=== PATIENT | male | born 1990 | race Caucasian/White ===

== ENCOUNTER 2018-11-06 16:23 | Emergency (ER) | payer OTHER, SELFPAY ==
[2018-11-06 16:45] VITALS: BP 125/82; PULSE 70; RESP 15; TEMP 36.1; O2SAT 100; BMI 31.9
--- NOTE | 2018-11-06 17:17 | DI.RAD.S_ITS ---
PROCEDURE: XR CHEST 1V INDICATIONS: central chest pain, on/off months. TECHNIQUE: One view of the chest was acquired. COMPARISON: None. FINDINGS: Surgical changes and devices: None. Lungs and pleura: Lungs are clear. No pleural effusions or pneumothorax. Mediastinum: Mediastinal contours appear normal. Heart size is normal. Bones and chest wall: No suspicious bony lesions. Overlying soft tissues appear unremarkable. IMPRESSION: No acute cardiopulmonary disease. Dictated by: Estefani Rosenberg M.D. on 11/06/2018 at 18:05 Approved by: Estefani Rosenberg M.D. on 11/06/2018 at 18:06
--- NOTE | 2018-11-06 17:19 | ED.SOB ---
HPI - SOB/Dyspnea General Chief Complaint: Shortness of Breath/Dyspnea Stated Complaint: SOB x2 days Time Seen by Provider: 11/06/18 17:10 Source: patient and family Mode of arrival: ambulatory Limitations: no limitations History of Present Illness A 28-year-old male who comes to the emergency department with complaint of chest pain and shortness of breath. Patient states he has had chest pain intermittently. He states that occasionally it seems to be associated with exertion, sometimes with eating other times not with anything in particular. He has not been able to establish any kind of pattern. Recently he started having a little bit of shortness of breath in conjunction the last day or 2. Patient states he has not had any fevers no cold cough or congestion. No rashes on his chest. States sort of central lower sternum. He states he does sometimes have abdominal pain because he has IBS knee has diarrhea and constipation intermittently because of IBS. Patient has not had any nausea or vomiting. He has felt short clammy at times with these episodes. He does not have any known medical problems. He has not had any prior surgeries. He was recently flown back from the [employer] travel time and airplane about 2 weeks ago. He has not appreciated any swelling or pain in his lower extremities. Related Data Home Medications Medication Instructions Recorded Confirmed No Known Home Medications 11/06/18 11/06/18 Allergies Allergy/AdvReac Type Severity Reaction Status Date / Time No Known Drug Allergies Allergy Verified 11/06/18 16:45 Review of Systems Review of Systems ROS Unobtainable: All systems reviewed & are unremarkable except as noted in HPI and below Constitutional Denies chills, Denies fever(s), Denies lethargy and Denies weakness Cardiovascular Reports chest pain, Reports chest pain at rest ( Sometimes), Reports chest pain with activity ( sometimes), Reports diaphoresis ( felt clammy), Denies syncope, Denies rapid heart rate, Denies edema, Denies irregular heart rhythm, Denies lightheadedness, Denies palpitations, Reports dyspnea (sometimes with chest pain.), Reports dyspnea on exertion and Denies orthopnea Respiratory Denies change in phlegm color, Denies chest congestion, Denies cough, Denies excessive phlegm production, Denies pain on inspiration, Denies pain with cough, Reports dyspnea (sometimes with chest pain.), Reports dyspnea on exertion, Denies stridor and Denies wheezing Gastrointestinal Gastrointestinal: Denies abdominal pain, Denies change in bowel habits, Denies diarrhea, Denies nausea and Denies vomiting Musculoskeletal Denies back pain Integumentary/Breasts Denies rash Neurologic Denies syncope and Denies weakness Endocrine Denies palpitations Allergic/Immunologic Denies wheezing PFSH Medical History IBS (irritable bowel syndrome) (Acute) Social History Smoking Status: Current every day smoker Social History marital status: Smoking Status: Current every day smoker alcohol intake: current substance use type: does not use Exam Narrative Exam Narrative: GENERAL: Alert and oriented x three, well-nourished, well-appearing male in no acute distress. HEENT: Head normocephalic, atraumatic, EOMI, pupils reactive, face symmetric, moist mucous membranes NECK: Supple, full range of motion CARDIOVASCULAR: Regular rate and rhythm without murmurs, rubs or gallops. RESPIRATORY: Breath sounds equal bilaterally, no wheezes rales or rhonchi. ABDOMEN: Soft, nontender. Normoactive bowel sounds all 4 quadrants. No guarding or rebound, rigidity, no mass : No CVA tenderness EXTREMITIES: Normal range of motion, no clubbing or edema. Neurovascularly intact NEUROLOGICAL: Cranial nerves II through XII grossly intact. Moving all extremities SKIN: Warm, dry, no petechiae, no rashes or lesions. Initial Vital Signs Initial Vital Signs: Vital Signs Temperature 97.0 F L 11/06/18 16:45 Pulse Rate 70 11/06/18 16:45 Respiratory Rate 15 11/06/18 16:45 Blood Pressure 125/82 11/06/18 16:45 Pulse Oximetry 100 11/06/18 16:45 Scores HEART Score Heart Score history: Moderately Suspicious Heart Score EKG: Normal Heart Score Age: < 45 years old Heart Score risk factors: No known risk factors Heart Score troponin: < or = to normal limit Heart Score Total: 1 Course Orders Ordered: ED Orders 11/06/18 17:17 XR chest 1V Stat 11/06/18 17:20 EKG-12 Lead Stat 11/06/18 17:40 B Type Natriuretic Peptide Stat Complete Blood Count AUTO DIFF Stat Comprehensive Metabolic Panel Stat D Dimer Stat Lipase Stat Partial Thromboplastin Time Stat Prothrombin Time INR Stat Troponin & CK Cardiac Panel Stat Sodium Chloride (Normal Saline 0.9%) 1,000 mls @ 1,000 mls/hr IV BOLUS ONE Stop: 11/06/18 18:16 Nitroglycerin (Nitrostat) 0.4 mg SL [id number] PRN PRN Reason: Chest Pain Discontinued Medications Aspirin (Aspirin Chew) 324 mg PO NOW ONE Stop: 11/06/18 17:18 Vital Signs - 8 hr 11/06/18 16:45 11/06/18 18:00 Temperature 97.0 F L Pulse Rate 70 68 Respiratory Rate 15 17 Blood Pressure 125/82 Blood Pressure [Left Arm] 107/78 Pulse Oximetry 100 99 MDM - SOB/Dyspnea Differential Diagnosis Likely community acquired pneumonia, pulmonary embolism and other (CAD/angina) Lab Data Attestation: I reviewed the patient's lab results. Result diagrams: 11/06/18 17:40 11/06/18 17:40 Lab Results 11/06/18 11/06/18 11/06/18 Range/Units 17:40 17:40 17:40 WBC 8.5 (4.5-11.0) X10^3/uL RBC 5.12 (4.5-5.9) X10^6/uL Hgb 15.9 (13.5-17.5) g/dL Hct 46.2 (41-53) % MCV 90.1 (80-100) fL MCH 31.0 (26-34) PG MCHC 34.4 (30-36) % RDW 13.1 (11.6-14.8) % Plt Count 209 (150-400) X10^3/uL Neut % (Auto) 55.2 (50-75) % Lymph % (Auto) 34.0 (25-40) % [place] % (Auto) 7.8 (3-14) % Eos % (Auto) 2.6 (2-4) % Baso % (Auto) 0.4 (0-2) % Neut # (Auto) 4700 (7056-8145) /uL Lymph # (Auto) 2900 (5901-0039) /uL [place] # (Auto) 700 (0-900) /uL Eos # (Auto) 200 (0-450) /uL Baso # (Auto) 0 (0-100) /uL PT 13.9 H (10.1-12.7) SECONDS INR 1.2 (0.9-1.3) APTT 32 (26.4-36.2) SECONDS D-Dimer < 200 (<230) ng/mL Sodium 140 (137-145) mmol/L Potassium 3.9 (3.4-5.1) mmol/L Chloride 104 (98-107) mmol/L Carbon Dioxide 26 (22-32) mmol/L BUN 15 (9-20) mg/dL Creatinine 1.10 (0.66-1.25) mg/dL Estimated GFR > 60.0 (>60) mL/min BUN/Creatinine Ratio 13.6 (6-22) Glucose 90 (70-100) mg/dL Calcium 9.6 (8.4-10.2) mg/dL Total Bilirubin 1.0 (0.2-1.3) mg/dL AST 34 (17-59) IU/L ALT 50 (21-72) IU/L Alkaline Phosphatase 87 (38-126) U/L Total Creatine Kinase 64 (55-170) U/L CK-MB (CK-2) TNP CK-MB (CK-2) Rel Index TNP Total Protein 8.2 (6.3-8.2) g/dL Albumin 4.8 (3.5-5.0) g/dL Globulin 3.4 (1.7-4.1) g/dL Albumin/Globulin Ratio 1.4 (1.0-2.8) Lipase 95 (23-300) U/L Imaging Data Chest x-ray: Radiologist's impression: Yobany Sullivan 28 M [address] [address] XRay Report Signed Patient: NateYobany R#: [id number] : 1990Acct:[id number] Age/Sex: 28 / MDate of Service: 11/06/18 Loc: ED Accession Number: [id number] Procedure: XR chest 1V Ordering Provider: Maria L Varela D.O. PROCEDURE: XR CHEST 1V INDICATIONS: central chest pain, on/off months. TECHNIQUE: One view of the chest was acquired. COMPARISON: None. FINDINGS: Surgical changes and devices: None. Lungs and pleura: Lungs are clear. No pleural effusions or pneumothorax. Mediastinum: Mediastinal contours appear normal. Heart size is normal. Bones and chest wall: No suspicious bony lesions. Overlying soft tissues appear unremarkable. IMPRESSION: No acute cardiopulmonary disease. Dictated by: Estefani Rosenberg M.D. on 11/06/2018 at 18:05 Approved by: Estefani Rosenberg M.D. on 11/06/2018 at 1 ECG Data Attestation: I personally reviewed and interpreted this ECG as follows: Prior ECG tracings: not available for review Interpretation: Sinus rhythm with sinus arrhythmia. Ventricular rate of 76 RI interval of 153 QRS of 94 and QTC of 364. No ST elevation or depression appreciated. MDM Narrative Medical decision making narrative: Patient's lab work does not show any acute changes. D-dimer is negative, patient abnormal department. Discussed with patient and family would recommend at least a repeat troponin and EKG. They are open to doing this at this time. Patient was signed out to Dr. Gustafson while pending repeat lab work. Discharge Plan Departure Clinical Impression: Chest pain Instructions: DI for Atypical Chest Pain Prescriptions: No Action No Known Home Medications RF: 0
--- NOTE | 2018-11-06 17:24 | ED_ITS ---
HPI - SOB/Dyspnea General Chief Complaint: Shortness of Breath/Dyspnea Stated Complaint: SOB x2 days Time Seen by Provider: 11/06/18 17:10 Source: patient and family Mode of arrival: ambulatory Limitations: no limitations History of Present Illness A 28-year-old male who comes to the emergency department with complaint of chest pain and shortness of breath. Patient states he has had chest pain intermittently. He states that occasionally it seems to be associated with exertion, sometimes with eating other times not with anything in particular. He has not been able to establish any kind of pattern. Recently he started having a little bit of shortness of breath in conjunction the last day or 2. Patient states he has not had any fevers no cold cough or congestion. No rashes on his chest. States sort of central lower sternum. He states he does sometimes have abdominal pain because he has IBS knee has diarrhea and constipation intermittently because of IBS. Patient has not had any nausea or vomiting. He has felt short clammy at times with these episodes. He does not have any known medical problems. He has not had any prior surgeries. He was recently flown back from the [employer] travel time and airplane about 2 weeks ago. He has not appreciated any swelling or pain in his lower extremities. Related Data Home Medications Medication Instructions Recorded Confirmed No Known Home Medications 11/06/18 11/06/18 Allergies Allergy/AdvReac Type Severity Reaction Status Date / Time No Known Drug Allergies Allergy Verified 11/06/18 16:45 Review of Systems Review of Systems ROS Unobtainable: All systems reviewed & are unremarkable except as noted in HPI and below Constitutional Denies chills, Denies fever(s), Denies lethargy and Denies weakness Cardiovascular Reports chest pain, Reports chest pain at rest ( Sometimes), Reports chest pain with activity ( sometimes), Reports diaphoresis ( felt clammy), Denies syncope, Denies rapid heart rate, Denies edema, Denies irregular heart rhythm, Denies lightheadedness, Denies palpitations, Reports dyspnea (sometimes with chest pain.), Reports dyspnea on exertion and Denies orthopnea Respiratory Denies change in phlegm color, Denies chest congestion, Denies cough, Denies excessive phlegm production, Denies pain on inspiration, Denies pain with cough, Reports dyspnea (sometimes with chest pain.), Reports dyspnea on exertion, Denies stridor and Denies wheezing Gastrointestinal Gastrointestinal: Denies abdominal pain, Denies change in bowel habits, Denies diarrhea, Denies nausea and Denies vomiting Musculoskeletal Denies back pain Integumentary/Breasts Denies rash Neurologic Denies syncope and Denies weakness Endocrine Denies palpitations Allergic/Immunologic Denies wheezing PFSH Medical History IBS (irritable bowel syndrome) (Acute) Social History Smoking Status: Current every day smoker Social History marital status: Smoking Status: Current every day smoker alcohol intake: current substance use type: does not use Exam Narrative Exam Narrative: GENERAL: Alert and oriented x three, well-nourished, well-appearing male in no acute distress. HEENT: Head normocephalic, atraumatic, EOMI, pupils reactive, face symmetric, moist mucous membranes NECK: Supple, full range of motion CARDIOVASCULAR: Regular rate and rhythm without murmurs, rubs or gallops. RESPIRATORY: Breath sounds equal bilaterally, no wheezes rales or rhonchi. ABDOMEN: Soft, nontender. Normoactive bowel sounds all 4 quadrants. No guarding or rebound, rigidity, no mass : No CVA tenderness EXTREMITIES: Normal range of motion, no clubbing or edema. Neurovascularly intact NEUROLOGICAL: Cranial nerves II through XII grossly intact. Moving all extremities SKIN: Warm, dry, no petechiae, no rashes or lesions. Initial Vital Signs Initial Vital Signs: Vital Signs Temperature 97.0 F L 11/06/18 16:45 Pulse Rate 70 11/06/18 16:45 Respiratory Rate 15 11/06/18 16:45 Blood Pressure 125/82 11/06/18 16:45 Pulse Oximetry 100 11/06/18 16:45 Scores HEART Score Heart Score history: Moderately Suspicious Heart Score EKG: Normal Heart Score Age: < 45 years old Heart Score risk factors: No known risk factors Heart Score troponin: < or = to normal limit Heart Score Total: 1 Course Orders Ordered: ED Orders 11/06/18 17:17 XR chest 1V Stat 11/06/18 17:20 EKG-12 Lead Stat 11/06/18 17:40 B Type Natriuretic Peptide Stat Complete Blood Count AUTO DIFF Stat Comprehensive Metabolic Panel Stat D Dimer Stat Lipase Stat Partial Thromboplastin Time Stat Prothrombin Time INR Stat Troponin & CK Cardiac Panel Stat Sodium Chloride (Normal Saline 0.9%) 1,000 mls @ 1,000 mls/hr IV BOLUS ONE Stop: 11/06/18 18:16 Nitroglycerin (Nitrostat) 0.4 mg SL [id number] PRN PRN Reason: Chest Pain Discontinued Medications Aspirin (Aspirin Chew) 324 mg PO NOW ONE Stop: 11/06/18 17:18 Vital Signs - 8 hr 11/06/18 16:45 11/06/18 18:00 Temperature 97.0 F L Pulse Rate 70 68 Respiratory Rate 15 17 Blood Pressure 125/82 Blood Pressure [Left Arm] 107/78 Pulse Oximetry 100 99 MDM - SOB/Dyspnea Differential Diagnosis Likely community acquired pneumonia, pulmonary embolism and other (CAD/angina) Lab Data Attestation: I reviewed the patient's lab results. Result diagrams: 11/06/18 17:40 11/06/18 17:40 Lab Results 11/06/18 11/06/18 11/06/18 Range/Units 17:40 17:40 17:40 WBC 8.5 (4.5-11.0) X10^3/uL RBC 5.12 (4.5-5.9) X10^6/uL Hgb 15.9 (13.5-17.5) g/dL Hct 46.2 (41-53) % MCV 90.1 (80-100) fL MCH 31.0 (26-34) PG MCHC 34.4 (30-36) % RDW 13.1 (11.6-14.8) % Plt Count 209 (150-400) X10^3/uL Neut % (Auto) 55.2 (50-75) % Lymph % (Auto) 34.0 (25-40) % [place] % (Auto) 7.8 (3-14) % Eos % (Auto) 2.6 (2-4) % Baso % (Auto) 0.4 (0-2) % Neut # (Auto) 4700 (4579-7272) /uL Lymph # (Auto) 2900 (8850-9522) /uL [place] # (Auto) 700 (0-900) /uL Eos # (Auto) 200 (0-450) /uL Baso # (Auto) 0 (0-100) /uL PT 13.9 H (10.1-12.7) SECONDS INR 1.2 (0.9-1.3) APTT 32 (26.4-36.2) SECONDS D-Dimer < 200 (<230) ng/mL Sodium 140 (137-145) mmol/L Potassium 3.9 (3.4-5.1) mmol/L Chloride 104 (98-107) mmol/L Carbon Dioxide 26 (22-32) mmol/L BUN 15 (9-20) mg/dL Creatinine 1.10 (0.66-1.25) mg/dL Estimated GFR > 60.0 (>60) mL/min BUN/Creatinine Ratio 13.6 (6-22) Glucose 90 (70-100) mg/dL Calcium 9.6 (8.4-10.2) mg/dL Total Bilirubin 1.0 (0.2-1.3) mg/dL AST 34 (17-59) IU/L ALT 50 (21-72) IU/L Alkaline Phosphatase 87 (38-126) U/L Total Creatine Kinase 64 (55-170) U/L CK-MB (CK-2) TNP CK-MB (CK-2) Rel Index TNP Total Protein 8.2 (6.3-8.2) g/dL Albumin 4.8 (3.5-5.0) g/dL Globulin 3.4 (1.7-4.1) g/dL Albumin/Globulin Ratio 1.4 (1.0-2.8) Lipase 95 (23-300) U/L Imaging Data Chest x-ray: Radiologist's impression: Yobany Sullivan 28 M [address] [address] XRay Report Signed Patient: NateYobany R#: [id number] : 1990Acct:[id number] Age/Sex: 28 / MDate of Service: 11/06/18 Loc: ED Accession Number: [id number] Procedure: XR chest 1V Ordering Provider: Maria L Varela D.O. PROCEDURE: XR CHEST 1V INDICATIONS: central chest pain, on/off months. TECHNIQUE: One view of the chest was acquired. COMPARISON: None. FINDINGS: Surgical changes and devices: None. Lungs and pleura: Lungs are clear. No pleural effusions or pneumothorax. Mediastinum: Mediastinal contours appear normal. Heart size is normal. Bones and chest wall: No suspicious bony lesions. Overlying soft tissues appear unremarkable. IMPRESSION: No acute cardiopulmonary disease. Dictated by: Estefani Rosenberg M.D. on 11/06/2018 at 18:05 Approved by: Estefani Rosenberg M.D. on 11/06/2018 at 1 ECG Data Attestation: I personally reviewed and interpreted this ECG as follows: Prior ECG tracings: not available for review Interpretation: Sinus rhythm with sinus arrhythmia. Ventricular rate of 76 [place] interval of 153 QRS of 94 and QTC of 364. No ST elevation or depression miguel reciated. MDM Narrative Medical decision making narrative: Patient's lab work does not show any acute changes. D-dimer is negative, patient abnormal department. Discussed with patient and family would recommend at least a repeat troponin and EKG. They are open to doing this at this time. Patient was signed out to Dr. Gustafson while pending repeat lab work. Discharge Plan Departure Clinical Impression: Chest pain Instructions: DI for Atypical Chest Pain Prescriptions: No Action No Known Home Medications RF: 0
[2018-11-06 17:47] LABS: Add Manual Diff / Slide Review NO; Basophils Absolute Auto 0 /uL (0-100); Basophils Percent Auto 0.4 % (0-2); Eosinophils Absolute Auto 200 /uL (0-450); Eosinophils Percent Auto 2.6 % (2-4); Hematocrit 46.2 % (41-53); Hemoglobin 15.9 g/dL (13.5-17.5); Lymphocytes Absolute Auto 2900 /uL (1100-4500); Mean Corpuscular HGB Conc 34.4 % (30-36); Mean Corpuscular Volume 90.1 fL (80-100); Monocytes Absolute Auto 700 /uL (0-900); Monocytes Percent Auto 7.8 % (3-14); Neutrophils Absolute Auto 4700 /uL (1500-7000); Neutrophils Percent Auto 55.2 % (50-75); Platelet Count 209 X10^3/uL (150-400); Red Blood Cell Count 5.12 X10^6/uL (4.5-5.9); Red Cell Distribution Width 13.1 % (11.6-14.8); White Blood Cell Count 8.5 X10^3/uL (4.5-11.0)
[2018-11-06 17:58] LABS: INR 1.2 (0.9-1.3); Prothrombin Time 13.9 SECONDS (10.1-12.7)
[2018-11-06 18:00] VITALS: BP 107/78; PULSE 68; RESP 17; O2SAT 99
[2018-11-06 18:01] LABS: PTT Partial Thromboplastin Tim 32 SECONDS (26.4-36.2)
[2018-11-06 18:02] LABS: D Dimer < 200 ng/mL (<230)
[2018-11-06 18:03] LABS: Alanine Aminotransferase 50 IU/L (21-72); Albumin 4.8 g/dL (3.5-5.0); Albumin Globulin Ratio 1.4 (1.0-2.8); Alkaline Phosphatase 87 U/L (38-126); Aspartate Aminotransferase 34 IU/L (17-59); BUN Creatinine Ratio 13.6 (6-22); Blood Urea Nitrogen 15 mg/dL (9-20); Calcium 9.6 mg/dL (8.4-10.2); Carbon Dioxide 26 mmol/L (22-32); Chloride 104 mmol/L (98-107); Creatine Kinase 64 U/L (55-170); Estimated Glomerular Filt Rate > 60.0 mL/min (>60); Globulin 3.4 g/dL (1.7-4.1); Glucose 90 mg/dL (70-100); HEMOLYSIS 16 (0-50); Lipase 95 U/L (23-300); Potassium 3.9 mmol/L (3.4-5.1); Sodium 140 mmol/L (137-145); Total Protein 8.2 g/dL (6.3-8.2)
[2018-11-06 18:15] LABS: Troponin I < 0.012 ng/mL (0.01-0.034)
[2018-11-06 18:26] LABS: B Type Natriuretic Peptide < 100 (<100)
[2018-11-06 19:11] VITALS: BP 109/74; PULSE 79
[2018-11-06] MEDS: NITROGLYCERIN 0.4 MG SL TAB SL (19:11)
[2018-11-06] MEDS: ASPIRIN 81 MG TAB 324 MG PO (19:12)
[2018-11-06] MEDS: PANTOPRAZOLE 40 MG VIAL IV (19:19)
[2018-11-06] MEDS: SODIUM CHLORIDE 0.9% 1,000 ML 1000 ML IV (19:20)
[2018-11-06 20:00] VITALS: BP 110/80; PULSE 75; RESP 18; O2SAT 99
[2018-11-06 20:09] VITALS: BP 108/75; PULSE 82
[2018-11-06 20:15] LABS: Troponin I < 0.012 ng/mL (0.01-0.034)
[2018-11-06 20:28] VITALS: BP 110/80; PULSE 75; RESP 18; O2SAT 98
== END 2018-11-06 20:35 | disposition home or self-care (01) ==
PROVIDERS: Emergency Medicine; Emergency Provider Emergency Medicine
DX: R07.9 Chest pain, unspecified (principal); R06.02 Shortness of breath
CPT/HCPCS: 36415; 36591; 71045; 80053; 82550; 83690; 83880; 84484; 85025; 85379; 85610; 85730; 93005; 93010; 96361; 96374; 99283; 99285; C9113

== ENCOUNTER 2018-11-28 06:40 | Emergency (ER) | payer OTHER, SELFPAY ==
[2018-11-28 06:56] VITALS: BP 141/99; PULSE 82; RESP 18; TEMP 36.1; O2SAT 100; BMI 30.4
--- NOTE | 2018-11-28 07:14 | ED_ITS ---
HPI - Male Genitourinary General Chief complaint: Urogenital-Male Stated complaint: KIDNEY STONES Time Seen by Provider: 11/28/18 07:07 Source: patient Mode of arrival: ambulatory Limitations: no limitations History of Present Illness HPI Narrative: Patient is a 28-year-old otherwise healthy male with history of kidney stones here for evaluation of left-sided pain. He states that it feels like a kidney stone. Last urinated this morning. No blood in it. Has not tried anything for the symptoms prior to arrival. Related Data Previous Rx's Medication Instructions Recorded ranitidine HCl [Zantac] 150 mg PO DAILY PRN #30 tab 11/06/18 Allergies Allergy/AdvReac Type Severity Reaction Status Date / Time No Known Drug Allergies Allergy Verified 11/06/18 16:45 Review of Systems Constitutional Denies fever(s) and Denies headache(s) ENT Ears, Nose, Mouth, and Throat: Denies vertigo and Denies headache(s) Cardiovascular Denies chest pain and Denies dyspnea Respiratory Denies dyspnea Gastrointestinal Gastrointestinal: Reports abdominal pain, Denies diarrhea, Reports nausea and Denies vomiting Genitourinary Reports flank pain Musculoskeletal Reports myalgias and Denies arthralgias Integumentary/Breasts Denies rash Neurologic Denies vertigo and Denies headache(s) Hematologic/Lymphatic Denies easy bleeding and Denies easy bruising PFSH Medical History IBS (irritable bowel syndrome) (Acute) Social History marital status: Smoking Status: Current every day smoker alcohol intake: current substance use type: does not use Exam Initial Vital Signs Initial Vital Signs: Vital Signs Temperature 96.9 F L 11/28/18 06:56 Pulse Rate 82 11/28/18 06:56 Respiratory Rate 18 11/28/18 06:56 Blood Pressure 141/99 H 11/28/18 06:56 Pulse Oximetry 100 11/28/18 06:56 Const General: cooperative, No comfortable ( Uncomfortable.) and No in distress Orientation: alert, awake and oriented x3 Resp Effort & Inspection: normal respiratory effort Auscultation: clear to auscultation bilaterally Cardio Rate: regular rate Rhythm: regular rhythm GI Inspection: non-distended Palpation: soft and No tender Back/Spine/Pelvis Back: No CVA tenderness Skin Lesions: no lesions Rashes: no rashes Neuro General: alert, awake and oriented x3 Extrem General: normal to inspection and capillary refill normal Course Orders Ordered: ED Orders 11/28/18 07:08 Basic Metabolic Panel Stat Complete Blood Count AUTO DIFF Stat Discontinued Medications Acetaminophen (Tylenol) 650 mg PO NOW ONE Stop: 11/28/18 07:08 Last Admin: 11/28/18 07:20 Dose: 650 mg Lidocaine HCl 6.8 ml/ Sodium (Chloride) 56.8 mls @ 340.8 mls/hr IV NOW ONE Stop: 11/28/18 07:12 Last Infusion: 11/28/18 07:58 Dose: 0 mls/hr Admin: 11/28/18 07:37 Dose: 340.8 mls/hr Ketorolac Tromethamine (Toradol) 30 mg IV NOW ONE Stop: 11/28/18 07:08 Last Admin: 11/28/18 07:20 Dose: 30 mg Vital Signs - 8 hr 11/28/18 06:56 11/28/18 07:25 Temperature 96.9 F L Pulse Rate 82 73 Respiratory Rate 18 25 H Blood Pressure 141/99 H Blood Pressure [Left Arm] 126/88 Pulse Oximetry 100 100 MDM - Male Genitourinary Lab Data Attestation: I reviewed the patient's lab results. Result diagrams: 11/28/18 07:08 11/28/18 07:08 Lab Results 11/28/18 11/28/18 Range/Units 07:08 07:08 WBC 8.5 (4.5-11.0) X10^3/uL RBC 5.17 (4.5-5.9) X10^6/uL Hgb 15.9 (13.5-17.5) g/dL Hct 46.2 (41-53) % MCV 89.3 (80-100) fL MCH 30.7 (26-34) PG MCHC 34.4 (30-36) % RDW 12.8 (11.6-14.8) % Plt Count 197 (150-400) X10^3/uL Neut % (Auto) 61.9 (50-75) % Lymph % (Auto) 27.7 (25-40) % [place] % (Auto) 7.6 (3-14) % Eos % (Auto) 2.2 (2-4) % Baso % (Auto) 0.6 (0-2) % Neut # (Auto) 5200 (3786-5563) /uL Lymph # (Auto) 2300 (4896-5063) /uL [place] # (Auto) 600 (0-900) /uL Eos # (Auto) 200 (0-450) /uL Baso # (Auto) 0 (0-100) /uL Sodium 140 (137-145) mmol/L Potassium 3.6 (3.4-5.1) mmol/L Chloride 104 (98-107) mmol/L Carbon Dioxide 25 (22-32) mmol/L BUN 14 (9-20) mg/dL Creatinine 1.10 (0.66-1.25) mg/dL Estimated GFR > 60.0 (>60) mL/min BUN/Creatinine Ratio 12.7 (6-22) Glucose 116 H (70-100) mg/dL Calcium 9.6 (8.4-10.2) mg/dL MDM Narrative Medical decision making narrative: patient with history kidney stones. States this feels very much like a prior kidney stone. He is afebrile. Chemistries unremarkable. States he feels much better after Toradol, Tylenol, lidocaine. Urinalysis still pending. Care turned over that 814 to follow up on urinalysis result. Discharge Plan Departure Prescriptions: No Action ranitidine HCl [Zantac] 150 mg tablet 150 mg PO DAILY PRN (Reason: reflux) Qty: 30 RF: 0
[2018-11-28] MEDS: KETOROLAC 60 MG/2 ML VIAL 30 MG IV (07:20)
[2018-11-28] MEDS: ACETAMINOPHEN 325 MG TABLET 650 MG PO (07:20)
[2018-11-28 07:23] LABS: Add Manual Diff / Slide Review NO; Basophils Absolute Auto 0 /uL (0-100); Basophils Percent Auto 0.6 % (0-2); Eosinophils Absolute Auto 200 /uL (0-450); Eosinophils Percent Auto 2.2 % (2-4); Hematocrit 46.2 % (41-53); Hemoglobin 15.9 g/dL (13.5-17.5); Lymphocytes Absolute Auto 2300 /uL (1100-4500); Lymphocytes Percent Auto 27.7 % (25-40); Mean Corpuscular HGB Conc 34.4 % (30-36); Mean Corpuscular Hemoglobin 30.7 PG (26-34); Mean Corpuscular Volume 89.3 fL (80-100); Monocytes Absolute Auto 600 /uL (0-900); Monocytes Percent Auto 7.6 % (3-14); Neutrophils Absolute Auto 5200 /uL (1500-7000); Neutrophils Percent Auto 61.9 % (50-75); Platelet Count 197 X10^3/uL (150-400); Red Blood Cell Count 5.17 X10^6/uL (4.5-5.9); Red Cell Distribution Width 12.8 % (11.6-14.8); White Blood Cell Count 8.5 X10^3/uL (4.5-11.0)
[2018-11-28 07:25] VITALS: BP 126/88; PULSE 73; RESP 25; O2SAT 100
[2018-11-28 07:31] LABS: BUN Creatinine Ratio 12.7 (6-22); Blood Urea Nitrogen 14 mg/dL (9-20); Calcium 9.6 mg/dL (8.4-10.2); Carbon Dioxide 25 mmol/L (22-32); Chloride 104 mmol/L (98-107); Estimated Glomerular Filt Rate > 60.0 mL/min (>60); Glucose 116 mg/dL (70-100); HEMOLYSIS < 15 (0-50); Potassium 3.6 mmol/L (3.4-5.1); Sodium 140 mmol/L (137-145)
[2018-11-28] MEDS: LIDOCAINE 2% 6.8 ML in SODIUM CHLORIDE 0.9% 50 ML 340.8 ML IV (07:37)
--- NOTE | 2018-11-28 08:29 | PC.NURSE ---
Pt sleeping in room, appears without distress at this time.
[2018-11-28 08:30] VITALS: BP 119/79; PULSE 63; RESP 12; O2SAT 97
--- NOTE | 2018-11-28 08:49 | PC.NURSE ---
Drinking po fluids as asked for urine.
[2018-11-28 09:35] LABS: Bacteria Urine None Seen; WBC Urine None Seen (0-5/HPF)
[2018-11-28 09:47] LABS: Culture Indicated Urine Cult Not Indicated; RBC Urine 10-30/HPF (0-5/HPF)
[2018-11-28 09:55] VITALS: BP 115/78; PULSE 71; RESP 20; O2SAT 98
--- NOTE | 2018-12-03 13:33 | PC.NURSE ---
follow up call, pt states good visit and feeling better.
== END 2018-11-28 09:55 | disposition home or self-care (01) ==
PROVIDERS: Emergency Medicine; Emergency Provider Emergency Medicine
DX: R10.9 Unspecified abdominal pain (principal)
CPT/HCPCS: 36591; 80048; 81003; 81015; 85025; 96365; 96375; 99283; 99284; J1885